=== PATIENT | female | born 1965 | race Caucasian/White ===

== ENCOUNTER 2025-05-14 09:00 | Outpatient (CLI) | payer BC | END 2025-05-14 09:01 | disposition home or self-care (01) | LOC: BICMAMMO 09:00 | PROVIDERS: ATTEND Obstetrics & Gynecology | DX: Z12.31 Encounter for screening mammogram for malignant neoplasm of breast (principal); Z13.820 Encounter for screening for osteoporosis | CPT/HCPCS: 77063; 77067; 77080 ==